=== PATIENT | female | born 1995 | race Caucasian/White ===

== ENCOUNTER 2020-12-17 09:58 | Inpatient (IN) | payer OTHER ==
[~2020-12-17] VITALS: Ht 157.5 cm; Wt 74.5 kg
[2020-12-17 10:16] VITALS: BP 119/70
[2020-12-17] MEDS ORDERED: MISOPROSTOL 200 MCG TABLET ONE (10:53)
[2020-12-17] MEDS ORDERED: NEWBORN KIT ONE (10:53)
[2020-12-17] MEDS ORDERED: BUPIVACAINE 0.25% ONE (10:58)
[2020-12-17] MEDS ORDERED: FENTANYL/BUPIV./NS/PF 250 ML EPIDCONT ONE (10:59)
[2020-12-17] MEDS ORDERED: METOCLOPRAMIDE 5 MG/ML, 2ML IVPush PRN (11:00)
[2020-12-17] MEDS ORDERED: OXYTOCIN 30U/ 0.9% NaCL 500ML 500 ML IV ONE (11:00)
[2020-12-17] MEDS ORDERED: ONDANSETRON 2MG/ML, 2ML IVPush PRN ×2 (11:00→12:00)
[2020-12-17] MEDS ORDERED: TERBUTALINE 1 MG/ML, 1ML IVPush PRN (11:00)
[2020-12-17] MEDS ORDERED: D5%-LACTATED RINGERS 1,000 ML IV SCH (11:00)
[2020-12-17] MEDS ORDERED: FENTANYL PF 100 MCG/2ML IVPush PRN (11:00)
[2020-12-17] MEDS ORDERED: SODIUM CITRATE/CITRIC ACID 30 ML UDC PO PRN (11:00)
[2020-12-17] MEDS ORDERED: LACTATED RINGERS 1,000 ML IV SCH ×2 (11:00→12:00)
[2020-12-17] MEDS ORDERED: TERBUTALINE 1 MG/ML, 1ML SQ PRN (11:00)
[2020-12-17] MEDS ORDERED: FENTANYL PF 100 MCG/2ML IV PRN (11:00)
[2020-12-17 11:41] LABS: BASOPHILS % (AUTO) 1 % (0-1); EOSINOPHILS % (AUTO) 0 % (1-7); LYMPHOCYTES % (AUTO) 13 % (22-44); MEAN CORPUSCULAR HEMOGLOBIN 24.1 pg (27.0-34.8); MEAN CORPUSCULAR HGB CONC 31.9 g/dL (32.4-35.8); MEAN PLATELET VOLUME 9.2 fL (7.4-10.4); MONOCYTES % (AUTO) 7 % (2-9); NEUTROPHILS % (AUTO) 80 % (42-75); PLATELET COUNT 217 x10^3/uL (130-400); RED BLOOD COUNT 4.64 x10^6/uL (3.82-5.3); RED CELL DISTRIBUTION WIDTH 16.5 % (9.6-15.2)
[2020-12-17] MEDS ORDERED: LACTATED RINGERS 1,000 ML IVBOLUS PRN (12:00)
[2020-12-17] MEDS ORDERED: FENTANYL/BUPIV./NS/PF 250 ML EPIDCONT SCH (12:00)
[2020-12-17] MEDS ORDERED: DIPHENHYDRAMINE 50 MG/ML, 1ML IVPush PRN (12:00)
[2020-12-17] MEDS ORDERED: NALOXONE 0.4 MG/ML, 1ML IVPush PRN (12:00)
[2020-12-17] MEDS ORDERED: EPHEDRINE 50 MG/ML, 1ML IVPush PRN (12:00)
[2020-12-17] MEDS: DOCUSATE 100 MG CAPSULE PO PRN (13:32)
[2020-12-17] MEDS ORDERED: HYDROcodone/APAP 5/325 TABLET PO PRN ×2 (14:00)
[2020-12-17] MEDS ORDERED: CARBOPROST TROMETHAMINE 250 MCG/ML, 1ML IM PRN (14:00)
[2020-12-17] MEDS ORDERED: SIMETHICONE 80 MG CHEW TAB PO PRN (14:00)
[2020-12-17] MEDS ORDERED: OXYTOCIN 10 UNITS/ML, 1ML IM PRN (14:00)
[2020-12-17] MEDS ORDERED: ACETAMINOPHEN 325 MG TABLET PO PRN (14:00)
[2020-12-17] MEDS ORDERED: MISOPROSTOL 200 MCG TABLET PR PRN (14:00)
[2020-12-17] MEDS ORDERED: ONDANSETRON 2MG/ML, 2ML IV PRN (14:00)
[2020-12-17] MEDS ORDERED: METHYLERGONOVINE 0.2 MG/ML IM PRN (14:00)
[2020-12-17] MEDS: IBUPROFEN 600 MG TABLET PO PRN ×2 (14:50→17:32)
[2020-12-17] MEDS: OXYTOCIN 30U/ 0.9% NaCL 500ML 500 ML IV SCH (14:50)
[2020-12-17 15:20] VITALS: BP 105/56
[2020-12-17 19:50] VITALS: BP 110/70
[2020-12-17 23:35] LABS: BASOPHILS % (AUTO) 0 % (0-1); EOSINOPHILS % (AUTO) 1 % (1-7); LYMPHOCYTES % (AUTO) 15 % (22-44); MEAN CORPUSCULAR HEMOGLOBIN 24.2 pg (27.0-34.8); MEAN CORPUSCULAR HGB CONC 32.2 g/dL (32.4-35.8); MEAN PLATELET VOLUME 9.3 fL (7.4-10.4); MONOCYTES % (AUTO) 8 % (2-9); NEUTROPHILS % (AUTO) 75 % (42-75); PLATELET COUNT 192 x10^3/uL (130-400); RED BLOOD COUNT 4.66 x10^6/uL (3.82-5.3); RED CELL DISTRIBUTION WIDTH 16.5 % (9.6-15.2)
[2020-12-18 00:01] VITALS: BP 108/68
[2020-12-18] MEDS: IBUPROFEN 600 MG TABLET PO PRN (00:02)
[2020-12-18 04:30] VITALS: BP 101/66
[2020-12-18 08:15] VITALS: BP 109/71
[2020-12-18] MEDS ORDERED: PRENATAL VIT/IRON/FA 1 EACH TABLET PO SCH (09:00)
[2020-12-18] MEDS: DOCUSATE 100 MG CAPSULE PO PRN (09:15)
[2020-12-18] MEDS: OXYTOCIN 30U/ 0.9% NaCL 500ML 500 ML IV SCH ×2 (10:00)
[2020-12-18] MEDS ORDERED: IBUP-1222 PO (10:36)
[2020-12-18] MEDS ORDERED: HYDR-2214 PO (10:36)
[2020-12-18] MEDS ORDERED: SENN-92 PO (10:36)
== END 2020-12-18 14:30 | disposition home or self-care (01) | DRG 807 ==
LOC: LDOP 09:58 → LDIP 10:44 → 2NW 15:15
PROVIDERS: ADMIT Obstetrics & Gynecology; ATTEND Obstetrics & Gynecology
PROC: 0KQM0ZZ Repair Perineum Muscle, Open Approach (ICD-10-PCS; principal; 2020-12-17)
PROC: 10E0XZZ Delivery of Products of Conception, External Approach (ICD-10-PCS; 2020-12-17)
PROC: 10907ZC Drainage of Amniotic Fluid, Therapeutic from Products of Conception, Via Natural or Artificial Opening (ICD-10-PCS; 2020-12-17)
PROC: 3E0R3BZ Introduction of Anesthetic Agent into Spinal Canal, Percutaneous Approach (ICD-10-PCS; 2020-12-17)
PROC: 00HU33Z Insertion of Infusion Device into Spinal Canal, Percutaneous Approach (ICD-10-PCS; 2020-12-17)
DX: O70.1 Second degree perineal laceration during delivery (principal); Z37.0 Single live birth; Z3A.39 39 weeks gestation of pregnancy; Z20.822 Contact with and (suspected) exposure to COVID-19
CPT/HCPCS: 36415; 85025; 86592; 86850; 86900; 87635; G0378; J2590; J3010; J7120